=== PATIENT | female | born 1970 | race Caucasian/White ===

== ENCOUNTER → 2019-04-14 15:57 | Outpatient (CLI) | payer BC, SELFPAY ==
--- NOTE | ~2019-04-14 | US_ITS ---
EXAMINATION: US pelvic complete DATE: 04/14/2019 16:23 INDICATION: Enlarged uterus Comparison:No prior studies for comparison. TECHNIQUE: Multiple transabdominal sonographic images of the pelvis performed. FINDINGS: The uterus measures 13.1 x 9.5 x 9 cm. The endometrial complex is not visualized due to fib roid changes. Multiple large fibroids are identified, largest measuring 10.3 x 7.6 x 8.7 cm. A smalle r fibroid measures 4.2 x 3.5 x 3.7 cm. The right ovary measures 2.8 x 1.5 x 2.5 cm. The left ovary is not visualized. There is no free fluid in the pelvis. There are no abnormal masses seen on either side. IMPRESSION: 1. Enlarged uterus containing fibroids, largest measuring 10.3 x 7.6 x 8.7 cm greatest dimension. Fib roid changes Limited evaluation of the endometrium. Reviewed, dictated and finalized at location A. STERED NURSE IMPRESSION: 1. Enlarged uterus containing fibroids, largest measuring 10.3 x 7.6 x 8.7 cm g reatest dimension. Fibroid changes Limited evaluation of the endometrium.
== END ==
PROVIDERS: Visit Provider Nurse Practitioner
DX: N85.2 Hypertrophy of uterus (principal); D25.9 Leiomyoma of uterus, unspecified
CPT/HCPCS: 76856

== ENCOUNTER 2019-04-15 08:28 | Outpatient (CLI) | payer BC, SELFPAY ==
--- NOTE | ~2019-04-15 | XR_ITS ---
XR chest 2V DATE: 04/15/2019 08:43 INDICATION: Cough TECHNIQUE: PA and lateral views COMPARISON: None FINDINGS: Normal heart size. No hilar or mediastinal enlargement. No pulmonary infiltrate or consolid ation, pleural effusion or pulmonary vascular congestion or pneumothorax. Mild dextro scoliosis of the thoracic spine. IMPRESSION: No active cardiopulmonary disease Reviewed, dictated and finalized at location B. CAPPER
== END 2019-04-15 08:29 | disposition home or self-care (01) ==
PROVIDERS: PCP Nurse Practitioner Family; Visit Provider Nurse Practitioner Family
DX: R05 Cough (principal)
CPT/HCPCS: 71046

== ENCOUNTER 2020-11-21 09:27 | Outpatient (CLI) | payer BC, SELFPAY ==
--- NOTE | ~2020-11-21 | XR_ITS ---
XR heel RT min 2V DATE: 11/21/2020 09:40 INDICATION: Right foot pain TECHNIQUE: Axial and lateral views of calcaneus COMPARISON: None FINDINGS: There is moderate plantar calcaneal enthesopathy, without erosive change or periostitis. No calcaneal fracture or bone destruction. IMPRESSION: Plantar calcaneal enthesopathy Reviewed, dictated and finalized at location B.
== END 2020-11-21 09:28 | disposition home or self-care (01) ==
LOC: CHSIMG 09:30
PROVIDERS: PCP Nurse Practitioner Family; Visit Provider Nurse Practitioner Family
DX: M79.671 Pain in right foot (principal)
CPT/HCPCS: 73650

== ENCOUNTER 2021-08-22 06:33 | Emergency (ER) | payer OTHER, SELFPAY ==
[2021-08-22 07:08] VITALS: BP 130/84; PULSE 80; RESP 17; TEMP 37.1; O2SAT 97
[2021-08-22 07:52] LABS: Add Urine Microscopic? NO; Appearance Urine Clear (Clear); Bilirubin Urine Negative (Negative); Blood Urine Negative (Negative); Color Urine Yellow (Yellow); Glucose Urine UA Negative (Negative); Ketones Urine Negative (Negative); Leukocyte Esterase Ur Negative (Negative); Nitrate Urine Negative (Negative); Protein Urine Negative (Negative); Specific Grav Ur >= 1.030 (1.010-1.020); Urobilinogen Urine 0.2 mg/dL (0.2-1.0)
[2021-08-22 08:10] LABS: Basophils Absolute Auto 0.03 K/mm3 (0.00-0.10); Basophils Percent Auto 0.6 % (0.0-1.0); Eosinophils Absolute Auto 0.02 K/mm3 (0.02-0.50); Eosinophils Percent Auto 0.4 % (1.0-6.0); Hematocrit 42.9 % (35.0-49.0); Immature Granulocyte Absolute 0.02 K/mm3 (0.00-0.00); Immature Granulocyte Percent A 0.4 % (0.0-0.0); Lymphocytes Absolute Auto 0.96 K/mm3 (1.10-4.50); Lymphocytes Percent Auto 19.9 % (18.0-42.0); Mean Corpuscular HGB Conc 32.6 g/dL (32.0-36.0); Mean Corpuscular Hemoglobin 30.4 pg (27.0-31.0); Mean Corpuscular Volume 93.1 fL (78.0-102.0); Mean Platelet Volume 10.5 fl (9.2-11.8); Monocytes Absolute Auto 0.46 K/mm3 (0.10-0.90); Monocytes Percent Auto 9.5 % (2.0-11.0); Neutrophils Absolute Auto 3.3 K/mm3 (1.7-7.2); Neutrophils Percent Auto 69.2 % (50.0-70.0); Platelet Count Result 152 K/mm3 (150-420); Red Blood Count 4.61 M/mm3 (4.20-5.40); Red Cell Distribution Width 11.4 % (11.6-14.4); White Blood Count 4.8 K/mm3 (4.8-10.8)
[2021-08-22 08:29] LABS: Alanine Aminotransferase 46 U/L (14-59); Albumin Level 3.8 g/dL (3.4-5.0); Alkaline Phosphatase 79 U/L (46-116); Anion Gap 7 mmol/L (8-16); Aspartate Amino Transferase 38 U/L (15-37); Bilirubin,Total 0.2 mg/dL (0.00-1.00); Blood Urea Nitrogen 11 mg/dL (7-18); Calcium 8.6 mg/dL (8.5-10.1); Carbon Dioxide 29 mmol/L (21-32); Chloride 104 mmol/L (98-108); Estimated CRCL calculation 64 ml/min; Estimated Glomerular Filt Rate > 60; Glucose 95 mg/dL (70-99); Osmolality Calculated 289 mOsm/kg (285-295); Potassium 3.7 mmol/L (3.5-5.1); Sodium 140 mmol/L (136-145); Total Protein 7.5 g/dL (6.4-8.2)
[2021-08-22 08:33] LABS: Lactic Acid Reflex 0.7 mmol/L (0.4-2.0)
[2021-08-22] MEDS: SODIUM CHLORIDE 0.9% IV 1,000 ML 999 ML IV CONT (08:35)
[2021-08-22 08:48] LABS: Influenza A QL RT-PCR Negative (Negative); Influenza B QL RT-PCR Negative (Negative); SARS-CoV-2 RNA PCR Positive (Negative)
--- NOTE | 2021-08-22 08:59 | ED.GENADULT ---
HPI - General Adult General Chief complaint: Unspecified Stated complaint: sore throat, fever, body aches, nausea Time Seen by Provider: 08/22/21 07:22 Source: patient Mode of arrival: ambulatory Limitations: no limitations History of Present Illness HPI narrative: this is a 51-year-old female who presents with symptoms of low-grade fevers with currently no shortness of breath no nausea vomiting no chest pain or abdominal patient does have a sore throat and some weakness, currently there is no shortness of breath no audible wheezing cough nonproductive currently afebrile. Onset (ago): day(s) Severity: mild Related Data Allergies Allergy/AdvReac Type Severity Reaction Status Date / Time No Known Allergies Allergy Unverified 11/21/20 08:11 Review of Systems Review of Systems: All systems reviewed & are unremarkable except as noted in HPI and below Eyes: Eyes: Reports as per HPI ENT: Reports system reviewed and no additional complaints, except as documented PMFSH Past Medical History Medical History Cough URI (upper respiratory infection) Uterine fibroid Surgical History Surgical History H/O skin graft Family History Family History Father Acute myocardial infarction Mother Healthy adult Grandparent Breast cancer Social History Social History Smoking status: Never smoker Alcohol intake: current Alcohol use details: glass of wine every night Substance use: never Substance use type: does not use Additional living arrangements comments: , has 1 child Additional occupation/education comments: Works for [employer] Gender identity (if verbalized by the patient): Female Spiritual care concerns: No Exam Const: General: cooperative, healthy appearing, comfortable, no acute distress, well developed, alert, awake and Physically active HENMT: Head: normal to inspection Face and sinus: normal facial exam Mouth: Yes Normal oral and palatal mucosa present and Yes oropharynx normal Throat: posterior oropharynx normal Eyes: General: appearance normal, both eyes and all related structures Visual Mcmullen: normal visual mcmullen by confrontation Periorbital: periorbital findings normal EOM: EOMs intact bilaterally Neck: Neck: normal visual inspection Chest: Chest palpation & inspection: normal inspection of the chest and normal palpation of entire chest wall Resp: Effort & Inspection: normal respiratory effort Cardio: Jugular venous distension: no JVD Palpation: normal PMI Rate: regular rate Rhythm: regular rhythm GI: Inspection: normal to inspection Urinary Catheter: Urinary Catheter: patent and draining Back/Spine/Pelvis: Back: no CVA tenderness Cervical Spine: normal cervical lordosis and cervical ROM normal Skin: General skin exam: normal color and no rashes or lesions noted Neuro: General: oriented to person, oriented to place and oriented to time Psych: Appearance: grossly normal and well kempt Course Course Emergency Course: Labs reviewed with patient, patient received IV Tylenol and does have COVID, advised to rest isolate and will send prescription of Paxlovid Vital Signs Vital signs: Vital Signs Temperature 37.1 C 08/22/21 07:08 Pulse Rate 80 08/22/21 07:08 Respiratory Rate 17 08/22/21 07:08 Blood Pressure 130/84 08/22/21 07:08 Pulse Oximetry 97 08/22/21 07:08 Oxygen Delivery Room Air 08/22/21 07:08 Temperature 37.1 C 08/22/21 07:08 Pulse Rate 80 08/22/21 07:08 Respiratory Rate 17 08/22/21 07:08 Blood Pressure 130/84 08/22/21 07:08 Pulse Oximetry 97 08/22/21 07:08 Oxygen Delivery Room Air 08/22/21 07:08 Medical Decision Making Vital Signs Vital Signs: Vital Signs Temperature 37.1 C
--- NOTE | 2021-08-22 09:26 | PC.NURSE ---
patient is finishing IVF then she will be discharged.
[2021-08-22 09:57] VITALS: BP 123/80; PULSE 83; RESP 16; TEMP 36.7; O2SAT 98
== END 2021-08-22 09:59 | disposition home or self-care (01) ==
PROVIDERS: Emergency Provider Emergency Medicine; PCP Nurse Practitioner Family
DX: U07.1 COVID-19 (principal)
CPT/HCPCS: 36415; 80053; 81003; 83605; 85025; 87081; 87502; 87880; 96365; 99284; C9803; J0131; J7030; U0003; U0005

== ENCOUNTER 2021-12-10 16:24 | Outpatient (CLI) | payer OTHER, SELFPAY | END 2021-12-10 16:25 | disposition home or self-care (01) | LOC: CHSLAB 16:26 | PROVIDERS: PCP Family Medicine; Visit Provider Family Medicine | DX: L82.1 Other seborrheic keratosis (principal) | CPT/HCPCS: 88305 ==

== ENCOUNTER 2023-02-09 13:46 | Outpatient (CLI) | payer OTHER, SELFPAY ==
[2023-02-12 10:43] LABS: Vitamin D 25 Hydroxy 40 ng/mL (30-100)
== END 2023-02-09 13:47 | disposition home or self-care (01) ==
LOC: CHSLAB 13:48
PROVIDERS: PCP Family Medicine; Visit Provider Obstetrics & Gynecology Gynecology
DX: E55.9 Vitamin D deficiency, unspecified (principal)
CPT/HCPCS: 36415; 82306

== ENCOUNTER 2023-09-12 12:09 | Emergency (ER) | payer OTHER, SELFPAY ==
--- NOTE | ~2023-09-12 | XR_ITS ---
XR forearm LT 2V 09/12/2023 12:49 INDICATION: Left arm pain PROCEDURE: 2 views left forearm COMPARISON: No prior studies for comparison. FINDINGS: Fracture, dislocation or subluxation is not identified. The soft tissues appear within norm al limits. No foreign bodies are identified. IMPRESSION: 1: NO ACUTE BONE OR JOINT ABNORMALITY IDENTIFIED. Reviewed, dictated and finalized at location B.
[2023-09-12 12:09] VITALS: BP 151/91; PULSE 80; RESP 16; TEMP 36.4; O2SAT 98
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
[2023-09-12] MEDS: cefTRIAXone 1 GM, LIDOCAINE HCL 1% LOCAL INJ 2.1 ML IM (12:35)
[2023-09-12] MEDS: KETOROLAC 30 MG/ML VIAL (*BKC) IM (12:35)
[2023-09-12] MEDS: TETANUS,DIPHTHERIA,AC PERTUSSIS ADULT 0.5 ML (ADACEL) IM (12:36)
--- NOTE | 2023-09-12 13:02 | PC.NURSE ---
Got supplies out for Dr. stephen suture
--- NOTE | 2023-09-12 13:10 | PC.NURSE ---
Gave 3 flushes and bottle of saline for procedure
[2023-09-12 13:30] VITALS: BP 140/82; PULSE 75; RESP 16; TEMP 36.6; O2SAT 100
== END 2023-09-12 13:30 | disposition home or self-care (01) ==
PROVIDERS: Emergency Provider Emergency Medicine; PCP Family Medicine
DX: S51.852A Open bite of left forearm, initial encounter (principal); Z23 Encounter for immunization; W54.0XXA Bitten by dog, initial encounter
CPT/HCPCS: 73090; 90471; 90715; 96372; 99284; J0696; J1885

== ENCOUNTER 2023-11-28 07:44 | Outpatient (CLI) | payer OTHER, SELFPAY ==
[2023-11-28 08:07] LABS: Hematocrit 39.8 % (35.0-49.0); Hemoglobin 13.5 g/dL (12.0-15.0); Mean Corpuscular HGB Conc 33.9 g/dL (32-36); Mean Corpuscular Hemoglobin 30.5 pg (27.0-31.0); Mean Platelet Volume 9.8 fl (9.2-11.8); Platelet Count Result 238 K/mm3 (150-420); Red Blood Count 4.42 M/mm3 (4.20-5.40); Red Cell Distribution Width 11.8 % (11.6-14.4); White Blood Count 4.4 K/mm3 (4.8-10.8)
[2023-11-28 08:36] LABS: Hemoglobin A1C 5.5 % (<5.7)
[2023-11-28 09:22] LABS: Cholesterol 201 mg/dL (0-200); HDL Direct 62 mg/dL (40-60); LDL Cholesterol Calculated 118 mg/dL (<130); Thyroid Stimulating Hormone 1.32 uIU/mL (0.36-3.74); Triglycerides 106 mg/dL (0-150); Vitamin B12 600 pg/mL (193-986)
[2023-12-01 04:58] LABS: Vitamin D 25 Hydroxy 45 ng/mL (30-100)
== END 2023-11-28 07:45 | disposition home or self-care (01) ==
LOC: CHSLAB 07:47
PROVIDERS: Obstetrics & Gynecology Gynecology; PCP Family Medicine; Visit Provider Nurse Practitioner Women's Health
DX: E55.9 Vitamin D deficiency, unspecified (principal)
CPT/HCPCS: 36415; 80061; 82306; 82607; 83036; 84439; 84443; 85027

== ENCOUNTER 2024-11-23 11:29 | Outpatient (CLI) | payer OTHER, SELFPAY ==
--- NOTE | 2024-11-23 | CONSULT_PTH ---
PATIENT: Tammy Saldaña LOC: [facility] U#:[id number] AGE/SX: 54/F ROOM: RE11/23/[address]: Brandon Pryor APRN : 1970 BED: DIS: 11/23/2024 SPEC #: [id number] RECD: 11/26/24 15:30 STATUS: LALA RERico #: [id number] LUIZ: 11/23/24 00:[address]: Brandon Pryor DEPT: [facility] Consult RECD BY: Rina Schulz MLT, ([facility] ENTERED: 11/26/24 15:31 SP TYPE: Consult OTHR DR: Durga Infante DO Tissues: A - Peripheral Smear Procedures: Hematology Consult
[2024-11-23 11:49] LABS: Hematocrit 42.8 % (35.0-49.0); Hemoglobin 14.2 g/dL (12.0-15.0); Mean Corpuscular HGB Conc 33.2 g/dL (32-36); Mean Corpuscular Hemoglobin 30.1 pg (27.0-31.0); Mean Corpuscular Volume 90.7 fL (78.0-102.0); Platelet Count Result 246 K/mm3 (150-420); Red Blood Count 4.72 M/mm3 (4.20-5.40); White Blood Count 4.6 K/mm3 (4.8-10.8)
--- OUTSIDE RECORDS SUMMARY | 2024-11-23 12:09 | XMS_ITS | Clinical Summary ---
Author Organization [facility] Address [address] [place] [address] Care Team Providers Care Digital Art Director Name Role Phone None, Provider MD Primary Care Provider Unavaila ble Family History Medical History Relation Comments Breast Cancer Paternal Grandmother Relation Status Comments Paternal Grandmother Social History Tobacco Use Types Packs/Day Years Used Date Smoking Tobacco: Never Assessed Comments Unknown Sex and Gender Information Value Date Recorded Sex Assigned at Not on file Legal Sex Female 2:09 PM CDT Gender Identity Not on file Sexual Orientation Not on file Plan of Treatment Health Maintenance Due Date Last Done Comments Cervical Cancer Screening Pa p Smear (Age 30 to 64) Every 3 Years 1970 Colorectal Cancer Screening Colonoscopy (10 Years) 1970 Annual Physical 1973 Hepatitis C 1988 DTaP, Tdap and Td Vaccines ( 1 - Tdap) 1989 Hepatitis B Vaccines (1 of 3 - 19+ 3-dose series) 1989 Cervical Cancer Screening Pa p with HPV Testing (Age 30 to 64) Every 5 Years 2000 Cervical Cancer Screening wi th HPV 2000 Pneumococcal Vaccine: 50+ Years (1 of 1 - PCV) 2020 Zoster Vaccines (1 of 2) 2020 COVID-19 Vaccine ( - 2023-2 5 season) 2024 Influenza Adult (#1) 2024 Mammogram Screening 06/02/2025 06/03/2023, 09/26/2021, 09/26/2020 Meningococcal B Vaccine Aged Out No l onger eligible based on patient's age to complete this topic Meningococcal Vaccine Aged Out No eliane benito eligible based on patient's age to complete this topic RSV Immunizations Under 20 Months Aged Out No longer eligible b ased on patient's age to complete this topic Procedures Procedure Name Priority Date/Time Associated Diagnosis Comments MG SCREENING W MELA CHELSEA DIGI Routine 06/03/2023 10:29 AM CDT Abnormal mammogram from Last 3 Months or Most Recently Relevant to Health Maintenance Results * MG SCREENING W MELA CHELSEA DIGI (06/03/2023 10:29 AM CDT) Anatomical Region Laterality Modality Breast Bilateral Mammography, Rad iographic Imaging 06/05/2023 8:19 AM CDT Impressions 06/05/2023 8:20 AM CDT ===== IMPRESSION: ===== 1. Stable mammographic appearance with no new findings to suggest malignancy in either breast. Assessment: ACR BI-RADS 2 - BENIGN FINDING(S) Recommendation: 1:Routine Screening Bilateral Comments: Ordered By: RAFFAELE PINA Interpreted By: Madhu Mayes MD, 06/05/2023 8:19 AM Narrative 06/05/2023 8:20 AM CDT Examination: Digital bilateral screening mammogram with 3D Tomosynthesis Exam Date/Time: 06/03/2023 9:57 AM Reason For Exam: Follow up No prior breast procedures. No personal or first-degree relative history of breast cancer. No current complaints. Comparison: Mammograms from 09/26/2021 09/26/2020 08/25/2018 Technique: Digital screening mammography of both breasts was performed in addition to 3-D Tomosynthesis technique. This study was read with the assistance of a computer-aided detection system. Tissue density: The breast tissue is heterogeneously dense, which may obscure small masses. Findings: Benign rounded calcifications again seen. Stable rounded mass in the right breast across multiple prior exams. Overall parenchymal pattern unchanged from prior studies. There is no new focal asymmetry, dominant mass lesion, area of skin thickening, or cluster of suspicious appearing calcifications in either breast to suggest malignancy. us Raffaele Pina MD MAMMO Final Res ult from Last 3 Months or Most Recently Relevant to Health Maintenance Insurance [employer] Care Teams Digital Art Director Relationship Specialty Start Date End Date None, Provider, PCP - General 09/24/20
--- OUTSIDE RECORDS SUMMARY | 2024-11-23 12:09 | XMS_ITS | Clinical Summary ---
Author Organization [facility] Address [address] [place] [address] Care Team Providers Care Machine Hoop Maker Name Role Phone Unavailable Primary Care Provider Unavailabl e Source Comments [facility],non-owned Affiliates and Associated Physician Practices is amultiple site organization consisting of ambulatory clinics and hospital sitesin [place], [place], [place] and [place]. This disclosure is being madepursuant to the Care Everywhere program and may not contain all information available regarding this patient. Last updated 17.[employer] [facility] Allergies No known active allergies Medications * Be aware that medications may not be up to date on this document. Alwaysverify current medications with the patient. No known medications Active Problems Problem Noted Date Diagnosed Date Migraine without aura and wi thout status migrainosus, not intractable 08/17/2017 Overview (08/17/2017): very rare. Supportive care discussed. if wants abortive will let me know. Family History Medical History Relation Name Comments [place] Father late 50s to ear ly 60s Lung Cancer Maternal Grandfather Hysterectomy Maternal Grandmother Arthritis Mother Hysterectomy Mother Breast Cancer at or under age 50 Paternal Grandmother Colon Cancer after age 50 or unknown Neg Hx Relation Name Status Comments Father Alive Maternal Grandfather Maternal Grandmother Mother Alive Paternal Grandfather Paternal Grandmother Social History Tobacco Use Types Packs/Day Years Used Date Smoking Tobacco: Never Smokeless Tobacco: Never Alcohol Use Standard Drinks/Week Comments Yes 0 (1 standard drink = 0.6 oz pur e alcohol) Comments No Sex and Gender Information Value Date Recorded Sex Assigned at Not on file 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 Gender Identity Not on file Sexual Orientation Not on file Last Filed Vital Signs Vital Sign Reading Time Taken Comments Blood Pressure 110/70 08/17/2017 8:09 AM CDT Pulse 67 08/17/2017 8:09 AM CDT Temperature 36.9 C (98.4 F) 08/17/2017 8:09 AM CDT Respiratory Rate 16 08/17/2017 8:09 AM CDT Oxygen Saturation 98% 05/26/2017 2:04 PM CDT Inhaled Oxygen Concentration - - Weight 69.2 kg (152 lb 9.6 oz) 08/17/2017 8:09 A M CDT Height 172.7 cm (5' 8) 08/17/2017 8:09 AM CDT Body Mass Index 23.2 08/17/2017 8:09 AM CDT Plan of Treatment Health Maintenance Due Date Last Done Comments COLOGUARD (AGES 45-75) - COLON CA SCREENING 1970 COLON MONITORING 1970 COLONOSCOPY - COLON CA SCREENING 1970 CT COLONOGRAPHY - COLON CA SCREENING 1970 Colorectal Cancer Screening 1970 FIT - COLON CA SCREENING 1970 FLEX SIG - COLON CA SCREENING 1970 HIV SCREENING 1985 HEPATITIS C SCREENING 04/24/1988 DTAP/TDAP/TD VACCINES (1 - Tdap) 1989 HEPATITIS B VACCINE (1 of 3 - 19+ 3-dose series) 1989 PNEUMOCOCCAL VACCINE 50+ (1 of 1 - PCV) 2020 ZOSTER VACCINE (1 of 2) 2020 MAMMOGRAM 08/25/2020 08/25/2018, 05/0 08/2017, 06/12/2016, Additional history exists LIPID TESTING 07/18/2021 07/18/2016 PAP with HPV 08/06/2022 08/06/2017 DEPRESSION SCREENING 02/24/2024 COVID-19 VACCINE ( - season) 2024 INFLUENZA VACCINE (#1) 2024 HIB VACCINE Aged Out No longer eligi ble based on patient's age to complete this topic HPV VACCINE Aged Out No longer eligi ble based on patient's age to complete this topic MENINGOCOCCAL (Group B) VACCINE SHARED DECISION-MAKING Aged Out No longer eligible based on patient's age to complete this topic MENINGOCOCCAL GROUPS A/C/Y/W VACCINE Aged Out No longer eligible based on patient's age to complete this topic Goals Goal Patient Goal Type Associated Problems Recent Progress Patient-Stated? Author Yearly PCP visit Lifestyle No Anny Durán Procedures Procedure Name Priority Date/Time Associated Diagnosis Comments MAMMOGRAPHY ORDER Routine 08/25/2018 PAP IG LB +HPV APTIMA REFLEX 16,18/45 Routine 08/06/2017 2:27 PM CDT Well woman exam with routine gynecological exam Screening for HPV (human papillomavirus) LIPID PROFILE Routine 07/18/2016 8:20 AM CDT Screening for lipid disorders Encounter for routine adult physical exam with abnormal findings from Last 3 Months or Most Recently Relevant to Health Maintenance Results * MAMMOGRAPHY ORDER (08/25/2018) Anatomical Region Laterality Modality Mammography us Scanned Document MAMMO ORDERABLES Edited Result - Final * PAP IG LB +HPV APTIMA REFLEX 16,18/45 (08/06/2017 2:27 PM CDT) Diagnosis [facility] ACCOUNT BILL Comment: NEGATIVE FOR INTRAEPITHELIAL LESION AND MALIGNANCY. ENDOMETRIAL CELLS ARE PRESENT. Specimen Adequacy [facility] ACCOUNT BILL Comment: Satisfactory for evaluation. Endocervical and/or squamous metaplastic cells (endocervical component) are present. Clinician Provided ICD10 [facility] ACCOUNT BILL Comment: Z01.419 Z11.51 Performed by [facility] ACCOUNT BILL Comment:Rossy greer, Barge Master (ASCP) Comment . [facility] ACCOUNT BILL Note [facility] ACCOUNT BILL Comment: The Pap smear is a screening test designed to aid in the detection of premalignant and malignant conditions of the uterine cervix. It is not a diagnostic procedure and should not be used as the sole means of detecting cervical cancer. Both false-positive and false-negative reports do occur. . IGLBP CPT Code Automation [facility] ACCOUNT BILL Comment: This liquid based ThinPrep(R) pap test was screened with the use of an image guided system. Human papillomavirus Aptima Negative Negative [facility] ACCOUNT BILL Comment: This test detects fourteen high-risk HPV types (16/18/31/33/35/39/45/ 51/52/56/58/59/66/68) without differentiation. PART OF UTERINE CERVIX / Unknown 08/06/2017 2:27 PM CDT 08/06/2017 Narrative [facility] ACCOUNT BILL - 08/10/2017 11:06 PM CDT Source.............Cervix LMP / Prev Treat...UFQ=[id number] No. of containers..01 ThinPrep Vial Resulting Agency Comment [facility] [address] [phone] us Kylah Whaley MD LAB - PATHOLOGY/CYTOLOGY ORDER FARIDEH Final Result [facility] ACCOUNT BILL [address] [place] [address] * LIPID PROFILE (07/18/2016 8:20 AM CDT) Cholesterol 162 <200 mg/dL [facility] ACCOUNT BILL Triglycerides 50 <150 mg/dL [facility] ACCOUNT BILL HDL Cholesterol 68 >40 mg/dL [facility] ACCOUNT BILL VLDL Calculated 10 <=30 mg/dL [facility] ACCOUNT BILL LDL Calculated 84 <130 mg/dL [facility] ACCOUNT BILL Comment:FASTING Blood BLOOD SPECIMEN / Unknown 07/18/2016 8:20 AM CDT 07/18/2016 Narrative Resulting Agency Comment [facility] [place] [address] [place] [phone] us Debra Hendricks MD LAB - CHEMISTRY ORDERABLES Fin al Result [facility] ACCOUNT BILL [address] [place] [address] from Last 3 Months or Most Recently Relevant to Health Maintenance Insurance [employer]
[2024-11-23 12:12] LABS: Band Neutrophils Percent 0 % (0-6); Basophils Absolute Manual 0.00 K/mm3 (0-0.1); Basophils Percent Manual 0 % (0-1); Eosinophils Absolute Manual 0.13 K/mm3 (0.02-0.50); Eosinophils Percent Manual 3 % (1-6); Lymphocytes Absolute Manual 1.79 K/mm3 (1.1-4.5); Lymphocytes Percent Manual 39 % (18-44); Monocytes Absolute Manual 0.36 K/mm3 (0.1-0.90); Monocytes Percent Manual 8 % (3-9); Neutrophils Absolute Manual 2.30 K/mm3 (1.3-6.7); Neutrophils Percent Manual 50 % (46-73); Total Cells Counted 10
== END 2024-11-23 11:30 | disposition home or self-care (01) ==
LOC: CHSLAB 11:30
PROVIDERS: PCP Family Medicine; Visit Provider Nurse Practitioner Family
DX: D72.819 Decreased white blood cell count, unspecified (principal)
CPT/HCPCS: 36415; 85025

== ENCOUNTER 2024-12-07 07:48 | Outpatient (CLI) | payer OTHER, SELFPAY ==
--- OUTSIDE RECORDS SUMMARY | 2024-12-07 07:54 | XMS_ITS | Clinical Summary ---
Author Organization [facility] Address [address] [place] [id number] Care Team Providers Care Vocational Training Teacher Name Role Phone None, Provider MD Primary [...] 2024 Mammogram Screening 06/02/2025 06/03/2023, 09/26/2021, 09/26/2020 Hepatitis A Vaccines Aged Out No long er eligible based on patient's age to complete this topic Meningococcal B Vaccine Aged Out No l [...] to Health Maintenance Insurance [employer] Care Teams Vocational Training Teacher Relationship Specialty Start Date End Date None, Provider, PCP - General 09/24/20
--- OUTSIDE RECORDS SUMMARY | 2024-12-07 07:54 | XMS_ITS | Clinical Summary ---
Author Organization [facility] Address [address] [place] [address] Care Team Providers Care Pediatric Cardiologist Name Role Phone Unavailable Primary Care Provider Unavailabl e Source Comments [facility],non-owned Affiliates and Associated Physician Practices is amultiple site organization consisting of ambulatory clinics and hospital sitesin [place], [place], [place] and [place]. This disclosure is being madepursuant to the Care Everywhere program and may not contain all information available regarding this patient. 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 [facility] ACCOUNT BILL Note [...] 11:06 PM CDT Source.............Cervix LMP / Prev Treat...[id number]=[id number] No. of containers..01 ThinPrep Vial Resulting Agency Comment [facility] [place] [address] [phone] us Kylah Whaley MD LAB - PATHOLOGY/CYTOLOGY ORDER FARIDEH Final Result [facility] ACCOUNT BILL [address] [place] [address] * LIPID PROFILE (07/18/2016 8:20 AM CDT) [...] AM CDT 07/18/2016 Narrative Resulting Agency Comment [facility] [place] [address] [place] [phone] us Debra Hendricks MD LAB - CHEMISTRY ORDERABLES Fin al Result [facility] ACCOUNT BILL [address] [place] [address] from Last 3 Months or Most Recently Relevant to Health Maintenance Insurance [employer]
[2024-12-07 08:57] LABS: Alanine Aminotransferase 24 U/L (6-35); Albumin Level 4.5 g/dL (3.5-5.1); Alkaline Phosphatase 49 U/L (38-126); Anion Gap 7 mmol/L (4-12); Aspartate Amino Transferase 31 U/L (14-36); Bilirubin,Total 0.5 mg/dL (0.2-1.3); Blood Urea Nitrogen 18 mg/dL (7-17); Calcium 10.2 mg/dL (8.4-10.2); Carbon Dioxide 28 mmol/L (22-30); Chloride 104 mmol/L (98-107); Estimated Glomerular Filt Rate > 60; Glucose 100 mg/dL (65-110); Osmolality Calculated 289 mOsm/kg (285-295); Potassium 4.6 mmol/L (3.4-5.0); Sodium 139 mmol/L (137-145); Total Protein 7.9 g/dL (6.3-8.2)
[2024-12-07 10:03] LABS: Vitamin B12 844.0 pg/mL (239-931)
== END 2024-12-07 07:49 | disposition home or self-care (01) ==
LOC: CHSLAB 07:49
PROVIDERS: PCP Family Medicine; Visit Provider Nurse Practitioner Family
DX: Z00.00 Encounter for general adult medical examination without abnormal findings (principal)
CPT/HCPCS: 36415; 80053; 82607; 82746